=== PATIENT | female | born 2000 | race African-American/Black ===

== ENCOUNTER 2020-10-12 05:00 | Inpatient (IN) ==
[2020-10-12] MEDS ORDERED: ONDANSETRON 4 MG/2 ML VIAL IV PRN (05:09)
[2020-10-12] MEDS ORDERED: LACTATED RINGERS 1,000 ML IV ONE ×2 (05:09→09:32)
[2020-10-12] MEDS ORDERED: BUTORPHANOL 2 MG/ML VIAL IV PRN (05:09)
[2020-10-12] MEDS ORDERED: OXYTOCIN/LR 20 UNIT/1,000 ML BAG IV SCH (05:30)
[2020-10-12] MEDS ORDERED: LACTATED RINGERS 1,000 ML IV SCH ×3 (05:30→17:30)
[2020-10-12 05:54] LABS: Basophils % 0.2 % (0.0-0.8); Eosinophils # 0.1 10*3/uL (0.0-0.87); Eosinophils % 2.1 % (0.00-10.9); Hemoglobin 12.7 GM/DL (12.0-16.0); Immature Granulocytes % 0.2 %; Immature Granulocytes Absolute 0.01 #; Lymphocytes # 1.6 10*3/uL (1.4-4.0); Mean Corpuscular HGB Conc 34.3 GM/DL (32-36); Mean Corpuscular Volume 88.1 FL (87-102); Mean Platelet Volume 11.1 FL (9.6-12.0); Monocytes % 9.8 % (1.7-12.7); Neutrophils % 54.7 % (38.7-73.9); Platelet Count 180 T/CUMM (130-400); Red Cell Distribution Width 13.5 % (9.3-17.3); White Blood Count 4.8 T/CUMM (4-12)
[2020-10-12 06:07] LABS: Albumin 3.1 G/DL (3.4-5.0); Bilirubin,Total 0.7 MG/DL (0.2-1.0); Calcium 8.8 MG/DL (8.5-10.1); Osmolality,Calculated 270.7 MOS/KG (273-304); Potassium 3.8 MMOL/L (3.5-5.1); Total Protein 7.3 G/DL (6.4-8.3)
[2020-10-12] MEDS ORDERED: ePHEDrine 50 MG/ML VIAL IV PRN (09:32)
[2020-10-12] MEDS ORDERED: CITRIC ACID/SODIUM CITRATE 30 ML UDCUP PO ONE (09:32)
[2020-10-12] MEDS ORDERED: FAMOTIDINE 20 MG/2 ML VIAL IV ONE (09:32)
[2020-10-12] MEDS ORDERED: NALOXONE 0.4 MG/ML VIAL IV PRN (09:33)
[2020-10-12] MEDS ORDERED: hydrOXYzine HCL 25 MG/1 ML VIAL IM PRN (09:33)
[2020-10-12] MEDS ORDERED: PROMETHAZINE 25 MG/1 ML VIAL IM ONE (09:33)
[2020-10-12] MEDS ORDERED: diphenhydrAMINE 50 MG/1 ML VIAL IV PRN ×2 (09:33)
[2020-10-12] MEDS ORDERED: fentaNYL 2 MCG/ROPIV 0.2% EPID 100 ML EPIDURAL SCH (10:00)
[2020-10-12 11:26] LABS: Bacteria,Urine Occasional /HPF (Few); Bilirubin,Urine Negative (Negative); Blood, Urine Negative (Negative); Glucose,Urine (UA) Negative (Negative); Ketones,Urine 20 mg/dL (Negative); Mucus,Urine Occasional /LPF (Occasional); Nitrite,Urine Negative (Negative); Protein,Urine Negative; RBC,Urine 2 /HPF (0-4); Squamous Epithelial Cell,Urine Occasional /HPF (0-10); Urine Appearance CLEAR (Clear); Urine Color Yellow (Yellow); Urine Specific Gravity 1.014 (1.001-1.035); WBC,Urine 3 /HPF (0-6)
[2020-10-12] MEDS ORDERED: miSOPROStoL 200 MCG TABLET ONE (13:10)
[2020-10-12] MEDS ORDERED: TRANEXAMIC ACID 1,000 MG/10 ML VIAL ONE (13:10)
[2020-10-12] MEDS ORDERED: METHYLERGONOVINE 0.2 MG/1 ML AMP ONE (13:11)
[2020-10-12] MEDS ORDERED: CARBOPROST TROMETHAMINE 250 MCG/ML AMP IM ONE (13:11)
[2020-10-12 13:44] LABS: Cord Venous Blood HCO3 24.3 MMOL/L; Cord Venous Blood PCO2 49.6 MMHG; Cord Venous Blood PO2 25.8 MMHG
[2020-10-12] MEDS ORDERED: IBUPROFEN 800 MG TABLET PO ONE (16:27)
[2020-10-12] MEDS ORDERED: OXYTOCIN/LR 20 UNIT/1,000 ML BAG IV ONE (16:44)
[2020-10-12] MEDS ORDERED: BISACODYL 10 MG SUPP RECTAL PRN (17:06)
[2020-10-12] MEDS ORDERED: MAGNESIUM HYDROXIDE SUSP 30 ML UDCUP PO PRN (17:06)
[2020-10-12] MEDS: DOCUSATE SODIUM 100 MG CAPSULE PO SCH (21:54)
[2020-10-12] MEDS: ACETAMINOPHEN 500 MG TABLET PO PRN (22:23)
[2020-10-13] MEDS: IBUPROFEN 800 MG TABLET PO PRN ×3 (01:21→23:41)
[2020-10-13 05:10] LABS: Basophils % 0.2 % (0.0-0.8); Eosinophils # 0.2 10*3/uL (0.0-0.87); Eosinophils % 2.5 % (0.00-10.9); Hematocrit 33.4 VOL% (35.7-47.0); Hemoglobin 11.4 GM/DL (12.0-16.0); Immature Granulocytes % 0.2 %; Immature Granulocytes Absolute 0.02 #; Lymphocytes # 1.9 10*3/uL (1.4-4.0); Lymphocytes % 23.5 % (21.3-54.2); Mean Corpuscular HGB Conc 34.1 GM/DL (32-36); Mean Corpuscular Volume 90.5 FL (87-102); Mean Platelet Volume 11.5 FL (9.6-12.0); Neutrophils % 63.6 % (38.7-73.9); Platelet Count 166 T/CUMM (130-400); Red Blood Count 3.69 MC/CUMM (3.8-5.5); Red Cell Distribution Width 13.6 % (9.3-17.3); White Blood Count 8.1 T/CUMM (4-12)
[2020-10-13] MEDS: DOCUSATE SODIUM 100 MG CAPSULE PO SCH ×2 (07:34→20:09)
[2020-10-13] MEDS: ACETAMINOPHEN 500 MG TABLET PO PRN ×2 (07:35→20:08)
[2020-10-13] MEDS: MULTIVITAMIN (PRENATAL) TABLET PO SCH (07:35)
[2020-10-14] MEDS: MULTIVITAMIN (PRENATAL) TABLET PO SCH ×2 (04:53→08:34)
[2020-10-14] MEDS: DOCUSATE SODIUM 100 MG CAPSULE PO SCH ×2 (04:53→08:30)
[2020-10-14 07:16] VITALS: BP 125/71
[2020-10-14] MEDS: IBUPROFEN 800 MG TABLET PO PRN (08:31)
== END 2020-10-14 11:20 | disposition home or self-care (01) | DRG 560 ==
LOC: N.LDOUT 05:00 → N.LD 05:08 → N.OB 17:15
PROVIDERS: ADMIT Obstetrics & Gynecology; ATTEND Obstetrics & Gynecology